=== PATIENT | female | born 1940 | race Caucasian/White ===

== ENCOUNTER 2017-10-03 10:47 | Outpatient (CLI) | payer OTHER | END 2017-10-03 10:48 | disposition home or self-care (01) | LOC: CAR 10:47 | PROVIDERS: ATTEND Internal Medicine | DX: J44.9 Chronic obstructive pulmonary disease, unspecified (principal) ==

== ENCOUNTER 2017-10-08 07:12 | Outpatient (RCR) ==
[2017-10-10 10:38] VITALS: BP 134/58
== END 2017-10-10 23:59 ==
LOC: PUL.REHAB 07:12
PROVIDERS: ATTEND Internal Medicine
DX: J44.9 Chronic obstructive pulmonary disease, unspecified (principal); J96.10 Chronic respiratory failure, unspecified whether with hypoxia or hypercapnia; I35.0 Nonrheumatic aortic (valve) stenosis; K22.4 Dyskinesia of esophagus

== ENCOUNTER 2017-10-11 08:56 | Outpatient (RCR) ==
[2017-10-29 20:05] VITALS: BMI 27.4
[2017-11-07 10:43] VITALS: BP 148/54
== END 2017-11-09 23:59 ==
LOC: PUL.REHAB 08:56
PROVIDERS: ATTEND Internal Medicine
DX: J44.9 Chronic obstructive pulmonary disease, unspecified (principal); J96.10 Chronic respiratory failure, unspecified whether with hypoxia or hypercapnia; I35.0 Nonrheumatic aortic (valve) stenosis; K22.4 Dyskinesia of esophagus

== ENCOUNTER 2017-10-29 19:56 | Emergency (ER) ==
[2017-10-29 20:05] VITALS: BP 130/80; TEMP 98.3; BMI 27.4
[2017-10-29] MEDS ORDERED: DECADRON 4 MG/ML SDV IM STA (20:26)
--- NOTE | 2017-10-29 20:28 | ED.PDOC ---
General ED Provider: Dr. PRESLEY MUÑIZ Chief Complaint: Bite Stated Complaint: Patient had Insect bite on the right leg, it has bleb Itching, . she has bruise in the area say it comes and goes. Time Seen by Physician: 20:26 Mode of Arrival: Wheelchair Information Source: Patient Primary Care Provider: VANDANA TOWNSEND Nursing and Triage Documentation Reviewed and Agree: Yes Reviewed sepsis parameters & appropriate labs ordered?: Yes System Inflammatory Response Syndrome: Not Applicable Sepsis Protocol: For patient's 13 years and over: Temp is 96.8 and below OR 101 and greater Pulse >90 BPM Resp >20/minute Acutely Altered Mental Status Are patient's symptoms suggestive of a new infection, such as: -Pneumonia -Skin, Soft Tissue -Endocarditis -UTI -Bone, Joint Infection -Implantable Device -Acute Abdominal Infection -Wound Infection -Meningitis -Blood Stream Catheter Infection -Unknown Skin Complaint Exam - Skin/Soft Tissue Complaint/Exam Symptoms Are: Still present Timing: Constant Initial Severity: Mild Current Severity: Mild Character: Reports: Redness, Swelling. Denies: Raised, Painful Aggravating: Reports: Touch Alleviating: Reports: None Associated Signs and Symptoms: Reports: Itching. Denies: Fever, Chills, Drainage, Bruising, Tenderness, Red streaks, Joint swelling Related Surgical History: Reports: None Recent Exposure to Others w/Similar Symptoms: Yes Skin Findings: Present: Pustules Differential Diagnoses: Other (Insect bite]) Review of Systems - Review Of Systems Constitutional: Reports: No symptoms Eyes: Reports: No symptoms Ears, Nose, Mouth, Throat: Reports: No symptoms Respiratory: Reports: No symptoms Cardiac: Reports: No symptoms GI: Reports: No symptoms : Reports: No symptoms Musculoskeletal: Reports: No symptoms Skin: Reports: No symptoms Neurological: Reports: No symptoms Endocrine: Reports: No symptoms Hematologic/Lymphatic: Reports: No symptoms All Other Systems: Reviewed and Negative Past Medical History - Past Medical History Previously Healthy: Yes Endocrine: Reports: None, DM 2 Cardiovascular: Reports: None Respiratory: Reports: COPD Hematological: Reports: None Gastrointestinal: Reports: None Genitourinary: Reports: None Neuro/Psych: Reports: None Musculoskeletal: Reports: None Cancer: Reports: None Last Menstrual Period: n/a - Surgical History General Surgical History: Reports: Hysterectomy - Family History Family History: Reports: None - Social History Smoking Status: Former smoker Hx Substance Use: No Alcohol Screening: None Physical Exam - Physical Exam Appearance: Ill-appearing (chronically ill), No pain distress, Well-nourished, Cachectic Eyes: JOHANNA, EOMI, Conjunctiva clear ENT: Ears normal, Nose normal, Oropharynx normal Respiratory: Airway patent, Breath sounds clear, Breath sounds equal, Respirations nonlabored Cardiovascular: RRR, Pulses normal, No rub, No murmur GI/: Soft, Nontender, No masses, Bowel sounds normal, No Organomegaly Musculoskeletal: Normal strength, ROM intact, No edema, No calf tenderness Skin: Warm, Dry, Normal color Neurological: Sensation intact, Motor intact, Reflexes intact, Cranial nerves intact, Alert, Oriented Psychiatric: Affect appropriate, Mood appropriate Critical Care Note - Critical Care Note Total Time (mins): 30 Course - Course Orders, Labs, Meds: Orders Category Date Time Status Dexamethasone 4 mg/ml Inj [Decadron 4 mg/ml Sdv] MEDS 10/29/17 20:26 Stat 4 mg IM ONCE STA Medications Generic Name Dose Route Start Last Admin Trade Name Freq PRN Reason Stop Dose Admin Dexamethasone Sodium Phosphate 4 mg 10/29/17 20:26 Decadron 4 Mg/Ml Sdv IM 10/29/17 20:27 ONCE STA Vital Signs: Temp Pulse Resp BP Pulse Ox 10/29/17 20:00 98.3 F 110 H 20 130/80 95 Departure - Departure Time of Disposition: 20:30 Disposition: HOME SELF-CARE Discharge Problem: Insect bite Qualifiers: Encounter type: initial encounter Qualified Code(s): W57.XXXA - Bitten or stung by nonvenomous insect and other nonvenomous arthropods, initial encounter Instructions: Insect Bite or Sting (ED) Condition: Stable Pt referred to PMD for follow-up: Yes IPMP verified?: No Additional Instructions: skin hygiene. f/u with PMD in 2-3 days. Please keep checking the blood sugars, as I am giving the steroid, they will be elevated, if more than 250 call your MD Prescriptions: Prednisone 10 mg PO BIDWM #14 tablet Allergies/Adverse Reactions: Allergies red dye Allergy (Intermediate, Unverified 10/08/17 11:21) Hives pink dye Adverse Reaction (Uncoded 10/29/17 20:04) Home Medications: Ambulatory Orders Albuterol Sulfate [Proair Hfa] 2 puff IH Q4H PRN 10/29/17 Metformin HCl 500 mg PO BID 10/29/17 Prednisone 10 mg PO BIDWM #14 tablet 10/29/17 Disposition Discussed With: Patient
== END 2017-10-29 21:00 | disposition home or self-care (01) ==
LOC: ED 19:56
DX: S80.861A Insect bite (nonvenomous), right lower leg, initial encounter (principal); E11.9 Type 2 diabetes mellitus without complications; W57.XXXA Bitten or stung by nonvenomous insect and other nonvenomous arthropods, initial encounter; Z79.899 Other long term (current) drug therapy
CPT/HCPCS: 96372; 99283

== ENCOUNTER 2017-11-05 06:55 | Outpatient (CLI) | payer OTHER ==
--- NOTE | 2017-11-05 09:47 | US ---
EXAM: Abdominal ultrasound limited HISTORY: Abnormal enzyme levels with history of prior cholecystectomy COMPARISON: None TECHNIQUE: Sonographic and limited Doppler evaluation of the right upper quadrant was performed. FINDINGS: The liver is heterogeneous in echogenicity and measures 16.3 cm. The portal vein is paten t. There is normal color Doppler flow and wave spectral analysis. The gallbladder has been removed. Common bile duct is unremarkable and measures 0.4 cm in diameter. The pancreas is unremarkable in appearance. The right kidney measures 9.8 x 4.3 x 3.7 cm with cortical thickness of 0.8 cm. IMPRESSION: 1. Heterogeneous appearance of the liver may represent hepatic parenchymal process with no focal hep atic lesion identified. 2. Prior cholecystectomy.
== END 2017-11-05 06:56 | disposition home or self-care (01) ==
LOC: RAD 06:55
PROVIDERS: ATTEND Emergency Medicine
DX: R74.8 Abnormal levels of other serum enzymes (principal)

== ENCOUNTER 2017-11-11 07:31 | Outpatient (RCR) ==
[2017-12-10 10:31] VITALS: BP 138/56
== END 2017-12-10 23:59 ==
LOC: PUL.REHAB 07:31
PROVIDERS: ATTEND Internal Medicine
DX: J44.9 Chronic obstructive pulmonary disease, unspecified (principal); J96.10 Chronic respiratory failure, unspecified whether with hypoxia or hypercapnia; I35.0 Nonrheumatic aortic (valve) stenosis; K22.4 Dyskinesia of esophagus

== ENCOUNTER 2017-12-11 07:05 | Outpatient (RCR) ==
[2018-01-09 10:29] VITALS: BP 138/58
== END 2018-01-10 23:59 ==
LOC: PUL.REHAB 07:05
PROVIDERS: ATTEND Internal Medicine
DX: J44.9 Chronic obstructive pulmonary disease, unspecified (principal); J96.10 Chronic respiratory failure, unspecified whether with hypoxia or hypercapnia; I35.0 Nonrheumatic aortic (valve) stenosis; K22.4 Dyskinesia of esophagus

== ENCOUNTER 2018-01-14 07:05 | Outpatient (RCR) | payer OTHER ==
[2018-02-06 12:07] VITALS: BP 118/54
== END 2018-02-09 23:59 ==
LOC: PUL.REHAB 07:05
PROVIDERS: ATTEND Internal Medicine
DX: J44.9 Chronic obstructive pulmonary disease, unspecified (principal); J96.10 Chronic respiratory failure, unspecified whether with hypoxia or hypercapnia; I35.0 Nonrheumatic aortic (valve) stenosis; K22.4 Dyskinesia of esophagus

== ENCOUNTER 2018-02-10 08:42 | Outpatient (RCR) ==
[2018-02-13 10:34] VITALS: BP 134/62
== END 2018-03-12 23:59 ==
LOC: PUL.REHAB 08:42
PROVIDERS: ATTEND Internal Medicine
DX: J44.9 Chronic obstructive pulmonary disease, unspecified (principal); J96.10 Chronic respiratory failure, unspecified whether with hypoxia or hypercapnia; I35.0 Nonrheumatic aortic (valve) stenosis; K22.4 Dyskinesia of esophagus

== ENCOUNTER 2018-07-21 21:09 | Outpatient (CLI) | END 2018-07-21 21:41 | disposition short-term general hospital (02) | LOC: AMBL 21:09 | PROVIDERS: ATTEND Family Medicine | DX: R04.2 Hemoptysis (principal); R06.02 Shortness of breath; R06.2 Wheezing; R00.0 Tachycardia, unspecified; J44.9 Chronic obstructive pulmonary disease, unspecified; I50.9 Heart failure, unspecified ==